=== PATIENT | female | born 1990 | race Caucasian/White ===

== ENCOUNTER 2017-02-02 17:21 | Emergency (ER) | payer BC ==
[2017-02-02 17:21] VITALS: BMI 30.6
[2017-02-02 17:31] VITALS: BP 130/75; PULSE 108; RESP 20; TEMP 97.8; O2SAT 100
--- NOTE | 2017-02-02 18:41 | ED PDOC ---
HPI: Female Pain Time Seen by Provider: 02/02/17 17:29 Chief Complaint (Nursing): Female Genitourinary Chief Complaint (Provider): pelvic pain History Per: Patient History/Exam Limitations: no limitations Onset/Duration Of Symptoms: Days (3 months, worse over last 3 days) Current Symptoms Are (Timing): Still Present Severity: Moderate Quality Of Discomfort: Cramping, "Pain" Associated Symptoms: Nausea, Loss Of Appetite, Urinary Symptoms (dysuria today) . 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 now taking old percocet with some relief. reports last pap smear was performed last year during and was normal Past Medical History Reviewed: Historical Data, Nursing Documentation, Vital Signs Vital Signs: Last Vital Signs Temp 97.8 F 02/02/17 17:28 Pulse 108 H 02/02/17 17:28 Resp 20 02/02/17 17:28 BP 130/75 02/02/17 17:28 Pulse Ox 100 02/02/17 17:28 - Medical History PMH: No Chronic Diseases - Surgical History Surgical History: Cholecystectomy, - Family History Family History: States: No Known Family Hx - Social History Current smoker - smoking cessation education provided: No - Home Medications Home Medications: Ambulatory Orders Medication Instructions Recorded Ibuprofen [Motrin Tab] 600 mg PO Q8 PRN #60 tab 02/02/17 metroNIDAZOLE [Flagyl] 500 mg PO TID #28 tab 02/02/17 traMADol [Ultram] 50 mg PO TID PRN 5 Days 02/02/17 - Allergies Allergies/Adverse Reactions: Allergies Allergy/AdvReac Type Severity Reaction Status Date / Time No Known Allergies Allergy Verified 02/02/17 17:28 Review of Systems ROS Statement: Except As Marked, All Systems Reviewed And Found Negative (and as per HPI) Gastrointestinal: Positive for: Nausea, Abdominal Pain. Negative for: Vomiting , Diarrhea, Melena, Hematochezia, Hematemesis Genitourinary Female: Positive for: Dysuria, Vaginal Discharge (brownish), Vaginal Bleeding, Pelvic Pain. Negative for: Frequency Musculoskeletal: Positive for: Back Pain Physical Exam - Reviewed Nursing Documentation Reviewed: Yes Vital Signs Reviewed: Yes - Physical Exam Appears: Positive for: Non-toxic, No Acute Distress Head Exam: Positive for: ATRAUMATIC, NORMOCEPHALIC Skin: Positive for: Warm, Dry Gastrointestinal/Abdominal: Positive for: Bowel Sounds, Soft, Tenderness ( suprapubic). Negative for: Mass, Distended, Guarding, Rebound, Asicites Pelvic Exam: Positive for: External Exam Normal, Speculum Exam Normal, No Cerv. Motion Tender, Tender Adnexa, Tender Uterus, Other (os open, mild erythema). Negative for: Active Bleeding, Discharge Back: Positive for: Normal Inspection. Negative for: L CVA Tenderness, R CVA Tenderness, Vertebral Tenderness Lymphatic: Negative for: Adenopathy, Inguinal Node Tenderness Neurologic/Psych: Positive for: Alert. Negative for: Motor/Sensory Deficits - ECG O2 Sat by Pulse Oximetry: 100 - Progress ED Course And Treament: EXAM: US Pelvis (transvaginal) CLINICAL HISTORY: 27 year old female with pelvic pain and vaginal spotting following intercourse. History of (8 months ago). TECHNIQUE: Real-time transvaginal pelvic ultrasound (complete) with image documentation. Transvaginal imaging was used for better evaluation of the endometrium and adnexa. EXAM DATE/TIME: 02/02/17 (6:27pm) COMPARISON: No relevant prior studies available FINDINGS: The LMP is reported to be: 01/09/17 The uterus is normal in size, measuring 6.3 x 4.0 x 3.7 cm in dimensions. No uterine mass is seen. The endometrium is thickened (13 mm thickness). The cervix measures 2.4 cm in length. No fluid collections are noted. The area of the scar was examined. The right ovary measures 3.2 x 2.7 x 3.2 cm in size. 2 adjacent simple right ovarian cysts (12 mm and 14 mm size). The left ovary measures 3.1 x 1.8 x 1.6 cm in size. There is no evidence of ovarian torsion on Doppler evaluation. No free pelvic fluid is seen. No solid adnexal masses are appreciated. IMPRESSION: No acute pathology. The endometrium is thickened (13 mm thickness). 2 adjacent right ovarian cysts. No evidence of ovarian torsion. Thank you for allowing us to participate in the care of your patient. Dictated and Authenticated by: Anne Marie Padilla MD 02/02/2017 8:34 PM Eastern Time ([place] & [place]) DW pt findings. Pt will receive flagyl and rocephin to complete rx for possible PID. f/u refrigerating machine operator next week and advised pap smear. Disposition - Clinical Impression Clinical Impression: Pelvic inflammatory disease Counseled Patient/Family Regarding: Studies Performed, Diagnosis, Need For Followup, Rx Given (DW pt risks of dependence, addiction and overdose of narcotic medications) - Disposition Disposition: Routine/Home Disposition Time: 20:00 Condition: STABLE Additional Instructions: PLEASE FOLLOW UP WITH YOUR SYSTEMS INTEGRATOR NEXT WEEK FOR REEVALUATION. YOU SHOULD GET A PAP SMEAR TO EVALUATE FOR OTHER CAUSES OF VAGINAL DISCHARGE. Prescriptions: Ibuprofen [Motrin Tab] 600 mg PO Q8 PRN #60 tab PRN Reason: Pain, Moderate (4-7) metroNIDAZOLE [Flagyl] 500 mg PO TID #28 tab traMADol [Ultram] 50 mg PO TID PRN 5 Days PRN Reason: SEVERE PAIN ONLY Instructions: Pelvic Inflammatory Disease (ED), Narcotic Pain Management (ED)
[2017-02-02] MEDS ORDERED: cefTRIAXone (Rocephin) 250 mg Inj ONE (20:50)
[2017-02-02] MEDS ORDERED: Sterile Water 10 ML IV ONE (20:50)
[2017-02-02] MEDS ORDERED: cefTRIAXone (Rocephin) 250 mg Inj IM ONE (20:50)
--- NOTE | 2017-02-03 09:37 | US ---
Pelvic ultrasound History: Vaginal spotting. Status post . Comparison: None. Technique: Ultrasound evaluation of the pelvis. Findings: The uterus appears retroverted. The uterus measures 6.3 x 4 x 3.7 centimeters. The endometrium appears 1.3 centimeters. No intrauterine gestational sac identified. There is thickening of the wall of the lower uterine segment/cervix. The anterior and posterior ramos measure approximately 3 millimeter. Both ovaries are unremarkable in appearance. The right ovary measures 3.2 x 2.7 x 3 2 centimeter. The left ovary is 3.1 x 1.8 x 1.6 centimeter. Doppler flow seen. No significant free fluid in the cul-de-sac. Impression: No intrauterine gestational sac. Mildly thickened endometrium. Please correlate with patient's menstrual cycle. Thickening of the wall of the lower uterine segment/cervix. Please correlate clinically with direct physical examination. Close interval repeat follow-up evaluation recommended. Please note that this report is discordant with preliminary report.
== END 2017-02-02 21:03 | disposition home or self-care (01) ==
LOC: H.ER 17:21
DX: N73.9 Female pelvic inflammatory disease, unspecified (principal); R11.0 Nausea; R30.0 Dysuria; N83.201 Unspecified ovarian cyst, right side
CPT/HCPCS: 76830; 81025; 87070; 87491; 87591; 96372; 99283; J0696; J1885